=== PATIENT | female | born 1995 | race Caucasian/White ===

== ENCOUNTER → 2017-01-02 | Outpatient (CLI) | payer BC ==
--- NOTE | 2017-01-02 13:12 | DIAGNOSTIC IMAGING REPORT ---
PELVIC COMPLETE NON OB CLINICAL HISTORY: OVARIAN CYST PAIN COMPARISON STUDY: None FINDINGS: The uterus measured 7.5 cm. The endometrial stripe measured 3 mm. The right ovary measured 2.7 cm maximum dimension. Several small sub-5 mm follicular cyst.. The left ovary measured maximum dimension 3.6 cm with normal vascular flow. 2 cm left ovarian cyst.. There is no ultrasonographic evidence of ovarian torsion. It should be noted that ovarian torsion can be present with normal Doppler ultrasonographic findings. There was no evidence of pathologic free pelvic fluid. IMPRESSION: 2 cm left ovarian cyst. Otherwise negative pelvic ultrasound. The above report was generated using voice recognition software. It may contain grammatical, syntax or spelling errors. Electronically signed by: Brennan Solis M.D. 01/02/2017 1:11 PM Dictated Date/Time: 01/02/2017 1:10 PM
== END | disposition home or self-care (01) ==
LOC: C.ULTRBC 12:21
PROVIDERS: ATTEND Obstetrics & Gynecology Obstetrics
DX: N83.202 Unspecified ovarian cyst, left side (principal)